=== PATIENT | male | born 1960 | race Caucasian/White ===

== ENCOUNTER 2016-02-23 18:03 | Emergency (ER) | payer MEDICARE ==
[2016-02-23] MEDS ORDERED: ONDANSETRON ODT 4 MG TAB ONE (19:07)
[2016-02-23] MEDS ORDERED: KETOROLAC 60 MG/2 ML VIAL IM ONE (19:07)
== END 2016-02-23 19:40 | disposition home or self-care (01) ==
LOC: FASTR 18:03
CPT/HCPCS: 96372

== ENCOUNTER 2016-03-01 12:00 | Emergency (ER) | payer MEDICARE ==
[2016-03-01] MEDS ORDERED: KETOROLAC 60 MG/2 ML VIAL IM ONE (12:45)
== END 2016-03-01 13:32 | disposition home or self-care (01) ==
LOC: ER 12:00
DX: S39.012A Strain of muscle, fascia and tendon of lower back, initial encounter (principal); E11.9 Type 2 diabetes mellitus without complications; Z79.4 Long term (current) use of insulin; F17.210 Nicotine dependence, cigarettes, uncomplicated
CPT/HCPCS: 96372

== ENCOUNTER 2016-03-10 20:19 | Emergency (ER) | payer MEDICARE ==
[2016-03-10] MEDS ORDERED: KETOROLAC 60 MG/2 ML VIAL IM ONE (21:44)
[2016-03-10] MEDS ORDERED: DILAUDID 1 MG/ML AMP ONE (21:45)
== END 2016-03-10 22:25 | disposition home or self-care (01) ==
LOC: ER 20:19
DX: S39.012A Strain of muscle, fascia and tendon of lower back, initial encounter (principal); E11.9 Type 2 diabetes mellitus without complications; Z79.4 Long term (current) use of insulin; F17.210 Nicotine dependence, cigarettes, uncomplicated
CPT/HCPCS: 96372; 99283; J1170

== ENCOUNTER 2016-03-17 13:38 | Emergency (ER) | payer MEDICARE ==
[2016-03-17] MEDS ORDERED: DILAUDID 1 MG/ML AMP ONE (16:03)
[2016-03-17] MEDS ORDERED: ORPHENADRINE 60 MG/2 ML AMP ONE (16:03)
== END 2016-03-17 17:12 | disposition home or self-care (01) ==
LOC: FASTR 13:38
DX: G89.29 Other chronic pain (principal); M54.5 Low back pain; E11.9 Type 2 diabetes mellitus without complications; Z79.4 Long term (current) use of insulin; F32.9 Major depressive disorder, single episode, unspecified; F17.210 Nicotine dependence, cigarettes, uncomplicated
CPT/HCPCS: 96372; 99283; J1170